=== PATIENT | male | born 1960 | race Caucasian/White ===

== ENCOUNTER 2018-01-30 18:54 | Emergency (ER) | payer OTHER ==
[~2018-01-30] VITALS: Ht 177.8 cm; Wt 92.8 kg
[2018-01-30 18:57] VITALS: BP 109/66
[2018-01-30] MEDS ORDERED: LISI5TAB7 PO (19:28)
[2018-01-30] MEDS ORDERED: ATOR40TA PO (19:28)
[2018-01-30] MEDS ORDERED: ASPI-191 PO (19:28)
[2018-01-30] MEDS ORDERED: SPIR25TA3 PO (19:28)
[2018-01-30] MEDS ORDERED: FURO-93 PO (19:28)
[2018-01-30] MEDS ORDERED: CARV6.2512 PO (19:28)
[2018-01-30] MEDS ORDERED: INSU100V SC (19:28)
[2018-01-30] MEDS ORDERED: INSU100V8 SQ (19:28)
[2018-01-30] MEDS ORDERED: METHOCARBAMOL 750 MG TABLET ONE (19:30)
[2018-01-30] MEDS ORDERED: ACETAMINOPHEN 500 MG TABLET ONE (19:30)
[2018-01-30] MEDS ORDERED: ACETAMINOPHEN 500 MG TABLET PO ONE (19:30)
[2018-01-30] MEDS ORDERED: METHOCARBAMOL 750 MG TABLET PO ONE (19:30)
== END 2018-01-30 20:31 | disposition home or self-care (01) ==
LOC: ED 19:15
DX: M54.42 Lumbago with sciatica, left side (principal); E11.9 Type 2 diabetes mellitus without complications; I25.10 Atherosclerotic heart disease of native coronary artery without angina pectoris
CPT/HCPCS: 99283

== ENCOUNTER 2018-02-04 04:12 | Inpatient (IN) | payer OTHER ==
[2018-02-03 14:47] LABS: MICROSCOPIC NOT IND
[2018-02-03 14:52] LABS: BASOPHILS # (AUTO) 0.07 x10^3/uL (0-0.1); BASOPHILS % (AUTO) 1 % (0-1); EOSINOPHILS # (AUTO) 0.31 x10^3/uL (0-0.4); EOSINOPHILS % (AUTO) 4 % (1-7); LYMPHOCYTES # (AUTO) 2.61 x10^3/uL (1-3.4); LYMPHOCYTES % (AUTO) 31 % (22-44); MD NO; MEAN CORPUSCULAR HEMOGLOBIN 30.6 pg (27.5-34.5); MEAN CORPUSCULAR HGB CONC 34.2 g/dL (33.2-36.2); MEAN CORPUSCULAR VOLUME 89.5 fL (81-97); MEAN PLATELET VOLUME 8.1 fL (7.4-10.4); MONOCYTES # (AUTO) 0.79 x10^3/uL (0.2-0.8); MONOCYTES % (AUTO) 9 % (2-9); NEUTROPHILS # (AUTO) 4.61 x10^3/uL (1.8-6.8); NEUTROPHILS % (AUTO) 55 % (42-75); PLATELET COUNT 332 x10^3/uL (130-400); RED BLOOD COUNT 5.12 x10^6/uL (4.38-5.82); RED CELL DISTRIBUTION WIDTH 13.2 % (9.4-14.8)
[2018-02-03 15:04] LABS: ALANINE AMINOTRANSFERASE 19 U/L (12-78); ALBUMIN 3.7 g/dL (3.4-5.0); ANION GAP 7 mmol/L (5-15); CALCIUM 9.3 mg/dL (8.5-10.1); CHLORIDE 102 mmol/L (98-107)
[2018-02-03 15:06] LABS: ALKALINE PHOSPHATASE 93 U/L (45-117); BILIRUBIN,TOTAL 0.5 mg/dL (0.2-1.0); TOTAL PROTEIN 7.8 g/dL (6.4-8.2)
[2018-02-03 15:13] LABS: HEMOGLOBIN A1C 9.7 % (4.2-6.3)
[2018-02-03 15:14] LABS: INTERNATIONAL NORMALIZED RATIO 1.01 (0.93-1.1); PROTHROMBIN TIME 10.5 Seconds (9.6-11.5)
[~2018-02-04] VITALS: Ht 177.8 cm; Wt 103.0 kg
[~2018-02-04 04:12] MED LIST: ASPI-191 PO; ATOR40TA PO; CARV6.2512 PO; FURO-93 PO; INSU100V SC; INSU100V8 SQ; LISI5TAB7 PO; SPIR25TA3 PO
[2018-02-04 04:21] VITALS: BP_SYST 116; BP_SYST 124; BP_DIAS 77; BP_DIAS 83
[2018-02-04] MEDS ORDERED: ALBUMIN HUMAN 5% 500 ML IV PRN (04:30)
[2018-02-04] MEDS ORDERED: CHLORHEXIDINE 15 ML BOTTLE MM SCH (04:30)
[2018-02-04] MEDS ORDERED: INSULIN LISPRO 100 UNITS/ML, PEN SQ-INSULIN SCH ×2 (04:30→16:00)
[2018-02-04] MEDS ORDERED: METOPROLOL TARTRATE 25 MG TABLET PO ONE (05:00)
[2018-02-04] MEDS ORDERED: THROMBIN 5,000 UNIT VIAL TP ONE ×2 (06:25→08:01)
[2018-02-04] MEDS ORDERED: HEPARIN 1,000 UNITS/ML, 10ML ONE (06:25)
[2018-02-04] MEDS ORDERED: PAPAVERINE 30 MG/ML, 2ML ONE (06:25)
[2018-02-04] MEDS ORDERED: MIDAZOLAM 10MG/2 ML ONE (06:48)
[2018-02-04] MEDS ORDERED: SUFentanil 50 MCG/ML, 5ML ONE (06:48)
[2018-02-04] MEDS ORDERED: CEFAZOLIN 1,000 MG ONE (07:08)
[2018-02-04] MEDS ORDERED: REGULAR INSULIN 62.5 UNITS in SODIUM CHLORIDE 0.9% 249.375 ML IV PRN (07:30)
[2018-02-04] MEDS ORDERED: POTASSIUM CHLORIDE 80 MEQ, SODIUM BICARBONATE 8.4% 10 MEQ, MAGNESIUM SULFATE 0.5 GM, LI... IV PRN (07:30)
[2018-02-04] MEDS ORDERED: PHENYLEPHRINE 10 MG in SODIUM CHLORIDE 0.9% 249 ML IV PRN (07:30)
[2018-02-04] MEDS ORDERED: DEXMEDETOMIDINE 200 MCG in SODIUM CHLORIDE 0.9% 48 ML IV SCH (07:30)
[2018-02-04] MEDS ORDERED: EPINEPHRINE 2 MG in SODIUM CHLORIDE 0.9% 248 ML IV SCH (07:30)
[2018-02-04] MEDS ORDERED: MANNITOL PMX 20% 500 ML IVPB PRN (07:30)
[2018-02-04] MEDS ORDERED: PAPAVERINE 30 MG/ML, 2ML IVPush ONE (07:59)
[2018-02-04] MEDS ORDERED: HEPARIN 1,000 UNITS/ML, 10ML IV ONE (08:00)
[2018-02-04] MEDS: SODIUM CHLORIDE FLUSH 10ML SYR IVF SCH ×3 (09:00→21:21)
[2018-02-04] MEDS ORDERED: MUPIROCIN OINT 2%, 22GM TP SCH (09:00)
[2018-02-04] MEDS ORDERED: PROTAMINE SULFATE 10 MG/ML, 25ML ONE ×2 (09:40)
[2018-02-04] MEDS ORDERED: AMINOCAPROIC ACID 250 MG/ML, 20ML ONE ×2 (09:40)
[2018-02-04] MEDS ORDERED: ROCURONIUM 10MG/ML,5ML ONE ×2 (09:40)
[2018-02-04] MEDS ORDERED: EPINEPHRINE 1 MG/ML, 1ML ONE (09:40)
[2018-02-04] MEDS ORDERED: PROPOFOL 10 MG/ML, 20ML ONE (09:40)
[2018-02-04] MEDS ORDERED: PHENYLEPHRINE 10 MG/ML ONE (09:40)
[2018-02-04] MEDS ORDERED: CALCIUM CHLORIDE 10%, 10ML SYR ONE (10:50)
[2018-02-04] MEDS ORDERED: NITROGLYCERIN/D5W PMX 250 ML IV PRN (11:19)
[2018-02-04] MEDS ORDERED: DEXMEDETOMIDINE 200 MCG in SODIUM CHLORIDE 0.9% 48 ML IV PRN (11:19)
[2018-02-04] MEDS ORDERED: DOBUTAMINE 250 MG in SODIUM CHLORIDE 0.9% 230 ML IV PRN (11:19)
[2018-02-04] MEDS ORDERED: VASOPRESSIN 50 UNIT in SODIUM CHLORIDE 0.9% 247.5 ML IV PRN (11:19)
[2018-02-04] MEDS ORDERED: SODIUM CHLORIDE 0.9% 1,000 ML IV PRN (11:19)
[2018-02-04] MEDS ORDERED: BISACODYL 5 MG EC TABLET PO PRN (11:30)
[2018-02-04] MEDS ORDERED: ONDANSETRON 2MG/ML, 2ML IVPush PRN (11:30)
[2018-02-04] MEDS ORDERED: ACETAMINOPHEN 325 MG TABLET PO PRN (11:30)
[2018-02-04] MEDS ORDERED: MIDAZOLAM 1 MG/ML, 5ML IVPush PRN (11:30)
[2018-02-04] MEDS ORDERED: DEXTROSE 4 GM TAB.CHEW PO PRN (11:30)
[2018-02-04] MEDS ORDERED: morphine SULFATE 10 MG/ML, 1ML IVPush PRN (11:30)
[2018-02-04] MEDS ORDERED: ACETAMINOPHEN 650 MG SUPP PR PRN (11:30)
[2018-02-04] MEDS ORDERED: PROCHLORPERAZINE 5 MG/ML, 2ML IVPush PRN (11:30)
[2018-02-04] MEDS ORDERED: BISACODYL 10 MG SUPP PR PRN (11:30)
[2018-02-04] MEDS ORDERED: SODIUM BICARB 8.4%, 50ML SYRINGE IV PRN (11:30)
[2018-02-04] MEDS ORDERED: GLUCAGON 1 MG IM PRN (11:30)
[2018-02-04] MEDS ORDERED: EPINEPHRINE 2 MG in SODIUM CHLORIDE 0.9% 248 ML IV PRN (11:30)
[2018-02-04] MEDS ORDERED: DEXTROSE 50%, 50ML SYRINGE IVPush PRN (11:30)
[2018-02-04] MEDS ORDERED: SODIUM BICARB 8.4%, 50ML SYRINGE ONE (11:49)
[2018-02-04] MEDS ORDERED: ALBUMIN HUMAN 25% 50 ML ONE (11:49)
[2018-02-04] MEDS ORDERED: LIDOCAINE 2% 100MG/5ML SYRINGE ONE (11:49)
[2018-02-04] MEDS ORDERED: HEPARIN 1,000 UNITS/ML, 30ML ONE (11:49)
[2018-02-04] MEDS: KSCALE TO 4.5 IV SCH ×2 (12:00→17:31)
[2018-02-04 12:15] LABS: GLUCOSE BY BLOOD GAS ANALYZER 152 mg/dL (70-110); HEMOGLOBIN BY BLOOD GAS ANALYZ 11.6 g/dL (14.0-18.0); POTASSIUM BY BLOOD GAS ANALYZR 3.6 mmol/L (3.6-5.5)
[2018-02-04] MEDS: LACTATED RINGERS 1,000 ML IV PRN ×3 (12:18→20:11)
[2018-02-04] MEDS: MAGNESIUM SULFATE 1 GM in SODIUM CHLORIDE 0.9% 50 ML IVPB SCH (12:31)
[2018-02-04] MEDS ORDERED: POTASSIUM CHLORIDE PMX 100 ML IV ONE (13:00)
[2018-02-04] MEDS ORDERED: INSULIN LISPRO 100 UNITS/ML, PEN SQ-INSULIN PRN (16:00)
[2018-02-04] MEDS: OXYcodone IR 5MG TABLET PO PRN ×2 (18:06→23:03)
[2018-02-04] MEDS: VANCOMYCIN 1,400 MG in SODIUM CHLORIDE 0.9% 250 ML IVPB SCH (20:11)
[2018-02-04] MEDS: MUPIROCIN OINT 2%, 22GM NAS SCH (21:00)
[2018-02-04] MEDS: DOCUSATE 100 MG CAPSULE PO SCH (21:19)
[2018-02-04] MEDS: CEFUROXIME 1.5 GM in SODIUM CHLORIDE 0.9% 50 ML IVPB SCH (21:38)
[2018-02-05] MEDS: KSCALE TO 4.5 IV SCH ×2 (00:46→06:00)
[2018-02-05] MEDS ORDERED: POTASSIUM CHLORIDE PMX 100 ML IV ONE (01:00)
[2018-02-05] MEDS: OXYcodone IR 5MG TABLET PO PRN ×3 (03:47→18:49)
[2018-02-05 04:00] VITALS: BP 110/58
[2018-02-05] MEDS: LACTATED RINGERS 1,000 ML IV PRN (05:00)
[2018-02-05] MEDS: REGULAR INSULIN 62.5 UNITS in SODIUM CHLORIDE 0.9% 249.375 ML IV PRN ×2 (05:01→23:49)
[2018-02-05 05:22] LABS: BASOPHILS # (AUTO) 0.07 x10^3/uL (0-0.1); BASOPHILS % (AUTO) 1 % (0-1); EOSINOPHILS # (AUTO) 0.01 x10^3/uL (0-0.4); EOSINOPHILS % (AUTO) 0 % (1-7); LYMPHOCYTES # (AUTO) 0.87 x10^3/uL (1-3.4); LYMPHOCYTES % (AUTO) 9 % (22-44); MD NO; MEAN CORPUSCULAR HEMOGLOBIN 29.9 pg (27.5-34.5); MEAN CORPUSCULAR HGB CONC 33.8 g/dL (33.2-36.2); MEAN CORPUSCULAR VOLUME 88.7 fL (81-97); MEAN PLATELET VOLUME 7.9 fL (7.4-10.4); MONOCYTES # (AUTO) 0.94 x10^3/uL (0.2-0.8); MONOCYTES % (AUTO) 10 % (2-9); NEUTROPHILS # (AUTO) 7.66 x10^3/uL (1.8-6.8); NEUTROPHILS % (AUTO) 80 % (42-75); PLATELET COUNT 180 x10^3/uL (130-400); RED BLOOD COUNT 3.31 x10^6/uL (4.38-5.82); RED CELL DISTRIBUTION WIDTH 12.8 % (9.4-14.8)
[2018-02-05 05:29] LABS: INTERNATIONAL NORMALIZED RATIO 1.05 (0.93-1.1); PROTHROMBIN TIME 10.9 Seconds (9.6-11.5)
[2018-02-05 05:33] LABS: ALBUMIN 2.7 g/dL (3.4-5.0); ANION GAP 7 mmol/L (5-15); CALCIUM 7.6 mg/dL (8.5-10.1); CHLORIDE 109 mmol/L (98-107)
[2018-02-05 05:35] LABS: CREATININE 0.72 mg/dL (0.7-1.3)
[2018-02-05] MEDS: VANCOMYCIN 1,400 MG in SODIUM CHLORIDE 0.9% 250 ML IVPB SCH (06:39)
[2018-02-05] MEDS ORDERED: VANCOMYCIN 1,400 MG in SODIUM CHLORIDE 0.9% 250 ML IV PRN (07:30)
[2018-02-05] MEDS: CEFUROXIME 1.5 GM in SODIUM CHLORIDE 0.9% 50 ML IVPB SCH (08:37)
[2018-02-05] MEDS: METOPROLOL TARTRATE 25 MG TABLET PO/NG SCH ×2 (08:59→20:49)
[2018-02-05] MEDS: SODIUM CHLORIDE FLUSH 10ML SYR IVF SCH ×4 (09:00→20:49)
[2018-02-05] MEDS: HYDROcodone/APAP 10/325 MG TABLET PO PRN ×2 (09:05→15:11)
[2018-02-05] MEDS: ASPIRIN 81 MG TABLET EC PO SCH (09:05)
[2018-02-05] MEDS: DOCUSATE 100 MG CAPSULE PO SCH ×2 (09:05→20:50)
[2018-02-05] MEDS: MUPIROCIN OINT 2%, 22GM NAS SCH ×2 (09:06→20:50)
[2018-02-05] MEDS ORDERED: INSULIN REGULAR 100 UNITS/ML, 3ML VIAL ONE (10:08)
[2018-02-05] MEDS: MAGNESIUM SULFATE 1 GM in SODIUM CHLORIDE 0.9% 50 ML IVPB SCH (12:14)
[2018-02-05] MEDS: CHLORHEXIDINE 15 ML BOTTLE MM SCH ×2 (12:14→23:28)
[2018-02-05] MEDS ORDERED: INSULIN LISPRO 100 UNITS/ML, PEN SQ-INSULIN SCH (16:00)
[2018-02-05] MEDS ORDERED: INSULIN LISPRO 100 UNITS/ML, PEN SQ-INSULIN PRN (16:00)
[2018-02-05] MEDS: INSULIN GLARGINE 100 UNITS/ML, PEN SQ-INSULIN SCH (20:49)
[2018-02-05] MEDS ORDERED: INSULIN GLARGINE 100 UNITS/ML, PEN SQ-INSULIN SCH (21:00)
[2018-02-06 04:00] VITALS: BP 109/70
[2018-02-06 04:11] LABS: BASOPHILS # (AUTO) 0.02 x10^3/uL (0-0.1); BASOPHILS % (AUTO) 0 % (0-1); EOSINOPHILS # (AUTO) 0.13 x10^3/uL (0-0.4); EOSINOPHILS % (AUTO) 1 % (1-7); LYMPHOCYTES # (AUTO) 1.59 x10^3/uL (1-3.4); LYMPHOCYTES % (AUTO) 14 % (22-44); MD NO; MEAN CORPUSCULAR HEMOGLOBIN 31.1 pg (27.5-34.5); MEAN CORPUSCULAR HGB CONC 34.7 g/dL (33.2-36.2); MEAN CORPUSCULAR VOLUME 89.6 fL (81-97); MEAN PLATELET VOLUME 7.9 fL (7.4-10.4); MONOCYTES # (AUTO) 1.28 x10^3/uL (0.2-0.8); MONOCYTES % (AUTO) 11 % (2-9); NEUTROPHILS # (AUTO) 8.63 x10^3/uL (1.8-6.8); NEUTROPHILS % (AUTO) 74 % (42-75); PLATELET COUNT 161 x10^3/uL (130-400); RED BLOOD COUNT 3.13 x10^6/uL (4.38-5.82); RED CELL DISTRIBUTION WIDTH 13.2 % (9.4-14.8)
[2018-02-06 04:17] LABS: INTERNATIONAL NORMALIZED RATIO 1.02 (0.93-1.1); PROTHROMBIN TIME 10.6 Seconds (9.6-11.5)
[2018-02-06 04:19] LABS: ANION GAP 6 mmol/L (5-15); CHLORIDE 101 mmol/L (98-107); CREATININE 0.64 mg/dL (0.7-1.3)
[2018-02-06] MEDS: OXYcodone IR 5MG TABLET PO PRN ×5 (04:22→20:56)
[2018-02-06] MEDS: INSULIN LISPRO 100 UNITS/ML, PEN SQ-INSULIN PRN ×3 (08:57→17:42)
[2018-02-06] MEDS: SODIUM CHLORIDE FLUSH 10ML SYR IVF SCH ×4 (08:59→21:02)
[2018-02-06] MEDS ORDERED: FUROSEMIDE 20 MG/2 ML IV SCH (09:00)
[2018-02-06] MEDS: METOPROLOL TARTRATE 25 MG TABLET PO/NG SCH ×2 (09:06→20:56)
[2018-02-06] MEDS: DOCUSATE 100 MG CAPSULE PO SCH ×2 (09:06→20:55)
[2018-02-06] MEDS: ASPIRIN 81 MG TABLET EC PO SCH (09:06)
[2018-02-06] MEDS: POTASSIUM CHLORIDE 10 MEQ TABLET.ER PO SCH (09:07)
[2018-02-06] MEDS: FUROSEMIDE 20 MG TABLET PO SCH (09:07)
[2018-02-06] MEDS: MUPIROCIN OINT 2%, 22GM NAS SCH ×2 (09:08→20:58)
[2018-02-06] MEDS ORDERED: MAGNESIUM SULFATE 1 GM in STERILE WATER 25 ML IVPB SCH (11:00)
[2018-02-06] MEDS ORDERED: MAGNESIUM SULFATE PMX 2GM/50ML 25 ML IVPB SCH ×2 (11:00)
[2018-02-06] MEDS: CHLORHEXIDINE 15 ML BOTTLE MM SCH (12:04)
[2018-02-06 15:16] VITALS: BP 101/64
[2018-02-06 19:57] VITALS: BP 103/68
[2018-02-06] MEDS: INSULIN GLARGINE 100 UNITS/ML, PEN SQ-INSULIN SCH (20:59)
[2018-02-06] MEDS: ENOXAPARIN 40 MG/0.4 ML SQ SCH (21:00)
[2018-02-06] MEDS: INSULIN LISPRO 100 UNITS/ML, PEN SQ-INSULIN SCH (21:01)
[2018-02-07 00:34] VITALS: BP 102/68
[2018-02-07] MEDS: CHLORHEXIDINE 15 ML BOTTLE MM SCH (01:08)
[2018-02-07] MEDS: OXYcodone IR 5MG TABLET PO PRN (01:08)
[2018-02-07 05:42] LABS: BASOPHILS # (AUTO) 0.02 x10^3/uL (0-0.1); BASOPHILS % (AUTO) 0 % (0-1); EOSINOPHILS # (AUTO) 0.17 x10^3/uL (0-0.4); EOSINOPHILS % (AUTO) 2 % (1-7); LYMPHOCYTES # (AUTO) 1.58 x10^3/uL (1-3.4); LYMPHOCYTES % (AUTO) 18 % (22-44); MD NO; MEAN CORPUSCULAR HEMOGLOBIN 31.1 pg (27.5-34.5); MEAN CORPUSCULAR HGB CONC 35.1 g/dL (33.2-36.2); MEAN CORPUSCULAR VOLUME 88.7 fL (81-97); MEAN PLATELET VOLUME 8.1 fL (7.4-10.4); MONOCYTES % (AUTO) 10 % (2-9); NEUTROPHILS # (AUTO) 5.98 x10^3/uL (1.8-6.8); NEUTROPHILS % (AUTO) 69 % (42-75); PLATELET COUNT 158 x10^3/uL (130-400); RED BLOOD COUNT 2.94 x10^6/uL (4.38-5.82); RED CELL DISTRIBUTION WIDTH 13.3 % (9.4-14.8)
[2018-02-07 05:51] LABS: ANION GAP 5 mmol/L (5-15); CALCIUM 7.9 mg/dL (8.5-10.1); CHLORIDE 101 mmol/L (98-107); CREATININE 0.67 mg/dL (0.7-1.3)
[2018-02-07 06:38] VITALS: BP 106/70
[2018-02-07] MEDS: INSULIN LISPRO 100 UNITS/ML, PEN SQ-INSULIN SCH ×4 (07:36→21:02)
[2018-02-07] MEDS: SODIUM CHLORIDE FLUSH 10ML SYR IVF SCH ×4 (07:41→21:04)
[2018-02-07] MEDS: DOCUSATE 100 MG CAPSULE PO SCH ×2 (09:33→21:00)
[2018-02-07] MEDS: POTASSIUM CHLORIDE 10 MEQ TABLET.ER PO SCH (09:33)
[2018-02-07] MEDS: METOPROLOL TARTRATE 25 MG TABLET PO/NG SCH ×2 (09:33→21:00)
[2018-02-07] MEDS: ASPIRIN 81 MG TABLET EC PO SCH (09:33)
[2018-02-07] MEDS: FUROSEMIDE 20 MG TABLET PO SCH (09:33)
[2018-02-07] MEDS: CLOPIDOGREL 75 MG TABLET PO SCH (09:33)
[2018-02-07] MEDS: MUPIROCIN OINT 2%, 22GM NAS SCH ×2 (09:34→21:01)
[2018-02-07 12:45] VITALS: BP 111/75
[2018-02-07] MEDS: HYDROcodone/APAP 10/325 MG TABLET PO PRN (13:48)
[2018-02-07 19:00] VITALS: BP 110/72
[2018-02-07] MEDS: ENOXAPARIN 40 MG/0.4 ML SQ SCH (21:00)
[2018-02-07] MEDS: INSULIN GLARGINE 100 UNITS/ML, PEN SQ-INSULIN SCH (21:04)
[2018-02-08 02:52] VITALS: BP 112/73
[2018-02-08 05:03] LABS: ANION GAP 6 mmol/L (5-15); CALCIUM 8.1 mg/dL (8.5-10.1); CHLORIDE 101 mmol/L (98-107); CREATININE 0.69 mg/dL (0.7-1.3)
[2018-02-08 05:14] LABS: BASOPHILS # (AUTO) 0.06 x10^3/uL (0-0.1); BASOPHILS % (AUTO) 1 % (0-1); EOSINOPHILS # (AUTO) 0.25 x10^3/uL (0-0.4); EOSINOPHILS % (AUTO) 3 % (1-7); LYMPHOCYTES # (AUTO) 1.36 x10^3/uL (1-3.4); LYMPHOCYTES % (AUTO) 18 % (22-44); MD NO; MEAN CORPUSCULAR HEMOGLOBIN 30.5 pg (27.5-34.5); MEAN CORPUSCULAR HGB CONC 34.1 g/dL (33.2-36.2); MEAN CORPUSCULAR VOLUME 89.3 fL (81-97); MEAN PLATELET VOLUME 8.2 fL (7.4-10.4); MONOCYTES # (AUTO) 0.85 x10^3/uL (0.2-0.8); MONOCYTES % (AUTO) 11 % (2-9); NEUTROPHILS % (AUTO) 66 % (42-75); PLATELET COUNT 197 x10^3/uL (130-400); RED BLOOD COUNT 2.97 x10^6/uL (4.38-5.82); RED CELL DISTRIBUTION WIDTH 13.4 % (9.4-14.8)
[2018-02-08 06:31] VITALS: BP 121/77
[2018-02-08] MEDS: INSULIN LISPRO 100 UNITS/ML, PEN SQ-INSULIN SCH ×4 (07:15→20:30)
[2018-02-08] MEDS: MUPIROCIN OINT 2%, 22GM NAS SCH ×2 (08:32→20:32)
[2018-02-08] MEDS: POTASSIUM CHLORIDE 10 MEQ TABLET.ER PO SCH (08:32)
[2018-02-08] MEDS: SODIUM CHLORIDE FLUSH 10ML SYR IVF SCH ×4 (08:33→20:36)
[2018-02-08] MEDS: ASPIRIN 81 MG TABLET EC PO SCH (08:33)
[2018-02-08] MEDS: DOCUSATE 100 MG CAPSULE PO SCH ×2 (08:33→20:31)
[2018-02-08] MEDS: FUROSEMIDE 20 MG TABLET PO SCH (08:33)
[2018-02-08] MEDS: CLOPIDOGREL 75 MG TABLET PO SCH (08:33)
[2018-02-08] MEDS: METOPROLOL TARTRATE 25 MG TABLET PO/NG SCH ×2 (08:34→20:31)
[2018-02-08] MEDS: HYDROcodone/APAP 10/325 MG TABLET PO PRN (11:31)
[2018-02-08 13:17] VITALS: BP 112/72
[2018-02-08 20:17] VITALS: BP 117/76
[2018-02-08] MEDS: INSULIN GLARGINE 100 UNITS/ML, PEN SQ-INSULIN SCH (20:30)
[2018-02-08] MEDS: ENOXAPARIN 40 MG/0.4 ML SQ SCH (20:31)
[2018-02-09 01:40] VITALS: BP 117/77
[2018-02-09 05:08] LABS: BASOPHILS # (AUTO) 0.04 x10^3/uL (0-0.1); BASOPHILS % (AUTO) 1 % (0-1); EOSINOPHILS % (AUTO) 5 % (1-7); LYMPHOCYTES # (AUTO) 1.27 x10^3/uL (1-3.4); LYMPHOCYTES % (AUTO) 19 % (22-44); MD NO; MEAN CORPUSCULAR HEMOGLOBIN 30.7 pg (27.5-34.5); MEAN CORPUSCULAR HGB CONC 34.1 g/dL (33.2-36.2); MEAN CORPUSCULAR VOLUME 90.1 fL (81-97); MEAN PLATELET VOLUME 7.4 fL (7.4-10.4); MONOCYTES # (AUTO) 0.76 x10^3/uL (0.2-0.8); MONOCYTES % (AUTO) 12 % (2-9); NEUTROPHILS # (AUTO) 4.18 x10^3/uL (1.8-6.8); NEUTROPHILS % (AUTO) 64 % (42-75); PLATELET COUNT 244 x10^3/uL (130-400); RED CELL DISTRIBUTION WIDTH 13.4 % (9.4-14.8)
[2018-02-09 05:14] LABS: ANION GAP 5 mmol/L (5-15); CALCIUM 8.4 mg/dL (8.5-10.1); CHLORIDE 104 mmol/L (98-107)
[2018-02-09 05:15] LABS: CREATININE 0.59 mg/dL (0.7-1.3)
[2018-02-09 06:30] VITALS: BP 126/79
[2018-02-09] MEDS: INSULIN LISPRO 100 UNITS/ML, PEN SQ-INSULIN SCH (07:02)
[2018-02-09] MEDS: MUPIROCIN OINT 2%, 22GM NAS SCH (07:41)
[2018-02-09] MEDS: DOCUSATE 100 MG CAPSULE PO SCH (07:42)
[2018-02-09] MEDS: CLOPIDOGREL 75 MG TABLET PO SCH (07:42)
[2018-02-09] MEDS: SODIUM CHLORIDE FLUSH 10ML SYR IVF SCH ×2 (07:42)
[2018-02-09] MEDS: POTASSIUM CHLORIDE 10 MEQ TABLET.ER PO SCH (07:43)
[2018-02-09] MEDS: ASPIRIN 81 MG TABLET EC PO SCH (07:43)
[2018-02-09] MEDS: METOPROLOL TARTRATE 25 MG TABLET PO/NG SCH (07:43)
[2018-02-09] MEDS: FUROSEMIDE 20 MG TABLET PO SCH (07:43)
[2018-02-09] MEDS ORDERED: METO25TA35 PO/NG (08:42)
[2018-02-09] MEDS ORDERED: CLOP75TA PO (08:42)
[2018-02-09] MEDS ORDERED: INSU100I11 SQ-INSULIN (08:42)
[2018-02-09] MEDS ORDERED: DOCU-131 PO (08:42)
[2018-02-09] MEDS ORDERED: INSU100I13 SQ-INSULIN (08:42)
[2018-02-09] MEDS ORDERED: POTA10TA5 PO (08:42)
[2018-02-09] MEDS ORDERED: ASPI-621 PO (08:42)
[2018-02-09] MEDS ORDERED: LISI5TAB7 PO (08:42)
[2018-02-09] MEDS ORDERED: POTASSIUM CHLORIDE 20 MEQ TAB.ER.PRT PO ONE (09:00)
[2018-02-09] MEDS ORDERED: LISINOPRIL 5 MG TABLET PO SCH (09:00)
[2018-02-09] MEDS ORDERED: HYDR-3240 PO (10:32)
== END 2018-02-09 10:45 | disposition home or self-care (01) | DRG 235 ==
LOC: 5SO 04:12 → CSU 09:04 → 5SO 02-06 14:57 → DCLOUNGE 02-09 10:27
PROVIDERS: ADMIT Thoracic Surgery (Cardiothoracic Vascular Surgery); ATTEND Thoracic Surgery (Cardiothoracic Vascular Surgery)
PROC: 02100Z9 Bypass Coronary Artery, One Artery from Left Internal Mammary, Open Approach (ICD-10-PCS; 2018-02-04)
PROC: 06BP4ZZ Excision of Right Saphenous Vein, Percutaneous Endoscopic Approach (ICD-10-PCS; 2018-02-04)
PROC: 5A1221Z Performance of Cardiac Output, Continuous (ICD-10-PCS; 2018-02-04)
PROC: B246ZZ4 Ultrasonography of Right and Left Heart, Transesophageal (ICD-10-PCS; 2018-02-04)
PROC: 021109W Bypass Coronary Artery, Two Arteries from Aorta with Autologous Venous Tissue, Open Approach (ICD-10-PCS; principal; 2018-02-04 07:30)
DX: I25.5 Ischemic cardiomyopathy (principal); J96.00 Acute respiratory failure, unspecified whether with hypoxia or hypercapnia; J98.11 Atelectasis; I25.82 Chronic total occlusion of coronary artery; E11.9 Type 2 diabetes mellitus without complications; E78.5 Hyperlipidemia, unspecified; I10 Essential (primary) hypertension; I25.10 Atherosclerotic heart disease of native coronary artery without angina pectoris; G89.18 Other acute postprocedural pain; F17.290 Nicotine dependence, other tobacco product, uncomplicated; I34.0 Nonrheumatic mitral (valve) insufficiency; Z79.4 Long term (current) use of insulin
CPT/HCPCS: 36415; 36600; 71045; 71046; 80048; 80053; 81003; 82040; 82330; 82800; 82803; 82810; 82947; 82962; 83036; 83735; 84132; 84295; 85014; 85018; 85025; 85049; 85347; 85610; 85730; 86850; 86900; 86923; 87081; 93005; 93312; 93321; 93325; 93880; 93970; 94002; 94150; J0171; J0690; J0697; J1644; J1650; J1815; J2250; J2704; J2720; J3370; J3475; J3480; J3490; P9045; P9047; C1751; J2370; J2440; J7050; J7120